=== PATIENT | female | born 1950 | race Caucasian/White ===

== ENCOUNTER 2019-06-28 12:38 | Emergency (ER) | payer MEDICARE ==
[~2019-06-28] VITALS: Ht 170.2 cm; Wt 91.2 kg
--- NOTE | 2019-06-28 12:46 | NUR ---
BIB ra c/o L ankle pain and deformity s/p GLF at [facility], pt aaox4, -sob, nad noted, pt to bed 5, md at [facility] for eval
[2019-06-28] MEDS ORDERED: PROPOFOL 20 ML IV ONE (12:55)
[2019-06-28] MEDS ORDERED: PROPOFOL 200 MG/20 ML VIAL IV ONE (13:00)
--- NOTE | 2019-06-28 13:00 | NUR ---
consent sign by patient
[2019-06-28] MEDS ORDERED: NALOXONE PREFILLED SYRINGE 2 MG/2 ML SYRINGE ONE (13:09)
--- NOTE | 2019-06-28 13:22 | NUR ---
left ankle reduction under moderate sedation; 1308- propfol 50mg ivp given rac20, under direct supervision by dr. ingram. 1314- pt awake and alert, denies pain/discomfort, pt back to baseline, -sob, nad noted. vss.
[2019-06-28 13:32] VITALS: BP 150/79
[2019-06-28] MEDS ORDERED: HYDROMORPHONE 1 MG/1 ML DISP.SYRIN ONE (14:06)
[2019-06-28] MEDS ORDERED: HYDROMORPHONE 1 MG/1 ML DISP.SYRIN IV ONE (14:30)
--- NOTE | 2019-06-28 14:37 | NUR ---
Patient discharged to home in stable condition. Written and verbal after care instructions given. Patient verbalizes understanding of instruction. IV removed. Catheter intact and site benign. Pressure and 4x4 applied to site. No bleeding noted.
== END 2019-06-28 14:52 | disposition home or self-care (01) ==
LOC: ER 12:42
DX: S82.392A Other fracture of lower end of left tibia, initial encounter for closed fracture (principal); S82.832A Other fracture of upper and lower end of left fibula, initial encounter for closed fracture; S93.05XA Dislocation of left ankle joint, initial encounter; Z88.6 Allergy status to analgesic agent; Z88.5 Allergy status to narcotic agent; Z91.040 Latex allergy status; Z91.018 Allergy to other foods; W18.2XXA Fall in (into) shower or empty bathtub, initial encounter; Y93.89 Activity, other specified; Y92.89 Other specified places as the place of occurrence of the external cause; Y99.8 Other external cause status
CPT/HCPCS: 27788; 27825; 73600 ×2; 96374; 99152; 99285; J1170; J2310; J2704; G0500

== ENCOUNTER → 2019-07-04 | Emergency (ER) | payer MEDICARE ==
[~2019-07-04] VITALS: Ht 170.2 cm; Wt 90.7 kg
[2019-07-04 15:35] VITALS: BP 145/92
--- NOTE | 2019-07-04 15:58 | NUR ---
Patient discharged to home in stable condition. Written and verbal after care instructions given. Patient verbalizes understanding of instruction.
--- NOTE | 2019-07-04 15:59 | NUR ---
Patient encourage to wait for re done splint
--- NOTE | 2019-07-04 16:00 | NUR ---
Patient stated agrees to follow up PMD and left assited to WC
== END | disposition home or self-care (01) ==
LOC: ER 15:28
DX: S82.892D Other fracture of left lower leg, subsequent encounter for closed fracture with routine healing (principal); G89.29 Other chronic pain; F32.9 Major depressive disorder, single episode, unspecified; Z98.890 Other specified postprocedural states; Z88.6 Allergy status to analgesic agent; Z88.5 Allergy status to narcotic agent; Z91.040 Latex allergy status; Z91.018 Allergy to other foods; W19.XXXD Unspecified fall, subsequent encounter